=== PATIENT | male | born 1940 | race Caucasian/White ===

== ENCOUNTER → 2017-03-12 07:49 | Outpatient (CLI) | payer MEDICARE, BC ==
[~2017-03-12 07:49] MED LIST: CENTRUM COMPLE1 EACH PO; NORVASC5 MG PO; PROTONIX40 MG PO; VITAMIN C1000 MG PO; VITAMIN E400 UNI2 PO; ZIAC 5-6.25 MG1 TAB PO
[2017-03-12 08:55] LABS: ALBUMIN 3.8 g/dL (3.4-5.0); BILIRUBIN - DIRECT 0.56 mg/dL (0.00-0.30); BILIRUBIN - INDIRECT 0.78 mg/dL (0.00-1.00); BILIRUBIN - TOTAL 1.34 mg/dL (0.2-1.3); PROTEIN - SERUM 7.6 g/dL (6.4-8.2)
== END | disposition home or self-care (01) ==
LOC: D.US 07:49
PROVIDERS: Internal Medicine Gastroenterology
DX: K70.30 Alcoholic cirrhosis of liver without ascites (principal)

== ENCOUNTER → 2017-05-27 16:18 | Outpatient (CLI) | payer MEDICARE, BC | END | disposition home or self-care (01) | LOC: D.MRI 16:18 | DX: M48.56XA Collapsed vertebra, not elsewhere classified, lumbar region, initial encounter for fracture (principal) ==

== ENCOUNTER → 2017-12-10 14:22 | Outpatient (CLI) | payer MEDICARE, BC ==
[~2017-12-10 14:22] MED LIST changes: +ALDACTONE25 MG PO; +CHRONULAC30 ML PO; +CLEOCIN HCL300 MG PO; +FLOMAX0.4 MG PO; +TENORMIN50 MG PO
== END | disposition home or self-care (01) ==
LOC: D.MRI 14:22
DX: L02.519 Cutaneous abscess of unspecified hand (principal)

== ENCOUNTER 2017-12-11 15:25 | Inpatient (IN) | payer MEDICARE, BC ==
[~2017-12-11] VITALS: Ht 177.8 cm; Wt 109.1 kg
--- NOTE | ~2017-12-11 | HP ---
PATIENT: FABIO VARGAS MEDICAL RECORD: [id number] ACCOUNT: [id number] LOCATION:D.[facility] : 42 ADMISSION DATE: 12/11/17 HISTORY AND PHYSICAL EXAMINATION HISTORY OF PRESENT ILLNESS: A 77-year-old gentleman who fell apparently cutting his hand on either a piece of glass or hitting it against a wall. This happened about 2-1/2 weeks ago. He states it was very swollen and red, but he was doctoring at home. He finally came in to see us midweek, thumb was very erythematous. There were 2 areas that were open on both the top and bottom of the thumb that were draining some. There was no streaking up the arm. White count was normal. He was afebrile. We started him on clindamycin, obtained wound cultures which did grow out MRSA. We saw him back yesterday. The thumb was actually looking better. There were no signs of osteo on plain film x-ray; however, we set him up for an MRI. The MRI result showed what appeared to be a possible early infectious tenosynovitis with edema tracking along the thumb to the flexor compartment, also a possible superimposed fracture over the distal phalanx and still some abscess or fluid collection radial to the proximal thumb phalanx. In light of this, we decided to admit the patient for IV antibiotics and orthopedic consultation for a possible debridement in the operating room. PAST MEDICAL HISTORY: He has a past medical history that includes GERD with alcoholic liver disease. He is followed by Dr. Carballo from . He also has a history of hypertension, BPH. HOME MEDICATIONS: Include amlodipine 5 mg daily, Tenoretic 50/25 one tablet daily. He has been on clindamycin now for the last 3 days 300 mg q.6 hours, Enulose 6 teaspoonful by mouth once daily, pantoprazole 40 mg daily, potassium 10 mEq b.i.d., Aldactone 50 mg daily, Flomax 0.4 mg daily. ALLERGIES: PENICILLIN AND TETANUS. SOCIAL HISTORY: He does still drink alcohol, he is a former smoker who quit over 10 years ago. FAMILY HISTORY: Noncontributory. REVIEW OF SYSTEMS: CONSTITUTIONAL: No fever or chills. HEENT: No visual or auditory changes, sore throat, rhinorrhea, or dysphagia. CARDIOPULMONARY: No chest pain, palpitations, orthopnea. No cough. GASTROINTESTINAL: Does have GERD and occasional bloating, but no abdominal pain. EXTREMITIES: Little bit of peripheral edema. He does have pain and swelling in the right thumb. PHYSICAL EXAMINATION: HEENT: Unremarkable. NECK: Supple. No JVD or adenopathy. HEART: Regular rate and rhythm. No murmurs or rubs. LUNGS: Clear with no rhonchi or wheezing. ABDOMEN: Soft, nontender with nondistended with normoactive bowel sounds. No organomegaly. EXTREMITIES: Right thumb had erythema and swelling along the dorsal and ventral aspect of the thumb with an open sore on both ends of the thumb with some HISTORY AND PHYSICAL [id number] FABIO VARGAS purulent drainage. VITAL SIGNS: He was afebrile. Blood pressure 120/80. ASSESSMENT AND PLAN: Abscess cellulitis, right thumb with a tenosynovitis and possible osteomyelitis with open fracture. We are going to obtain orthopedic consult. We will hold off on CT scan until seen by ortho, but we will repeat plain film x-rays today. Ask ID to consult. Start vancomycin IV q.12 hours with pharmacy to dose. Continue his home medications for his cirrhosis and hypertension. His wound culture that was done from a couple of days ago again did show methicillin-resistant Staphylococcus aureus . It was sensitive to vancomycin, Bactrim, tetracycline, rifampin, and clindamycin. It was resistant to erythromycin and oxacillin. We will continue to follow clinically. EDITED ON WRONG ACCT# [id number] 12/15/17 TRANSINT:[id number] Voice Confirmation ID: [id number] DOCUMENT ID: [id number] PARDEEP HUNTER DO at 0716 CC: [id number] DICTATION DATE: 12/11/17 1227 IRON GUARDRAIL INSTALLER: 12/11/17 1310 DIS IN 12/14/17 [facility] [address] [place] [address]
--- NOTE | ~2017-12-11 | OP ---
PATIENT NAME: FABIO VARGAS MEDICAL RECORD: [id number] :44 LOCATION:D[id number] ADMISSION DATE:12/11/17 SURGEON: ANNA KUMAR MD DATE OF OPERATION: 12/11/2017 PREOPERATIVE DIAGNOSIS: Open fracture dislocation of the right thumb DIP. POSTOPERATIVE DIAGNOSIS: Open fracture dislocation of the right thumb DIP. PROCEDURE: Excisional debridement of flexor tendon sheath of the right thumb DIP with open reduction internal fixation of the fracture dislocation and a volar plate repair. SURGEON: Anna Kumar MD ANESTHESIA: General. INTRAOPERATIVE COMPLICATIONS: None. SUMMARY OF PATHOLOGIC FINDINGS: The patient had what was thought to be a closed thumb phalanx dislocation with contusions and abrasions that got infected. Clearly at the time of surgery, the patient had a scrape of the condyle of the thumb phalanx indicating this most likely was an open fracture dislocation, the tendon itself was in good condition and was not cut; however, the volar plate had completely avulsed requiring all of the above surgery, that is excisional debridement volar plate repair and open reduction internal fixation of the thumb distal interphalangeal joint or the thumb IP joint. OPERATIVE SUMMARY IN DETAIL: After obtaining the appropriate preoperative orthopedic surgery consent as well as anesthetic consultation, evaluation and clearance, the patient was brought to the operating room and placed on the operating table in supine position. After general laryngeal mask administered, tourniquet was placed about the proximal aspect of the right upper extremity. Right upper extremity was then prepped and draped in routine sterile fashion. The arm was elevated and exsanguinated, tourniquet inflated to 250 mmHg. The initial exploration did show the above findings. The incision itself was widened in a volar zigzag pattern to reveal the above pathology. After bulb syringe irrigation was carried out, the IP joint was reduced and pinned with an 0.062 K-wire under fluoroscopic control. Thus stabilizing the joint, allowing for further debridement of the entire flexor tendon sheath, the patient at this point had complete infectious obliteration of the A2 peyton or the peyton mechanism across the thumb phalanx. However, the volar plate was in good condition and was easily repaired across the base of the DIP joint. At this point, further irrigation was carried out and then the skin was very loosely reapproximated with 4-0 Prolene. All nonviable tissue had been excised with both scalpel and rongeur and this was deep to bone with some excision of bony fragments. Having completed the closure, Jergens ball was placed on the tip of the K-wire and sterile dressings were applied. Fluoroscopic images were sent to radiology for final radiologist review. The patient was awakened and taken to the recovery room in stable condition. All final needle and sponge counts were correct. TRANSINT:[id number] Voice Confirmation ID: [id number] DOCUMENT ID: [id number] OPERATIVE REPORT [id number] FABIO VARGAS MD, ANNA SORIANO at 1101 CC: [id number] DICTATION DATE: 12/12/17 1029 PUBLIC HEALTH DOCTOR: 12/12/17 1212 ADM IN [facility] [address] [place] [address]
[~2017-12-11 15:25] MED LIST changes: -ALDACTONE25 MG PO; -CHRONULAC30 ML PO; -CLEOCIN HCL300 MG PO; -FLOMAX0.4 MG PO; -TENORMIN50 MG PO
[2017-12-11 16:11] VITALS: BP 124/67; BMI 34.5
[2017-12-11 17:54] LABS: BASOPHILS 0.3 % (0-2); EOSINOPHILS 0.3 % (0-7); HEMOGLOBIN 11.1 g/dL (13.5-17.5); IMMATURE GRANULOCYTES 0.5 % (0-5); LYMPHOCYTES 17.3 % (15-50); MCH 35.7 pg (26.0-34.0); MCHC 35.8 g/dL (31.0-37.0); MCV 99.7 fL (80.0-100.0); MEAN PLATELET VOLUME 9.4 fL (7.4-10.4); MONOCYTES 12.9 % (2-11); NEUTROPHILS 68.7 % (40-80); RBC 3.11 10x6/uL (4.20-6.10); RDW 11.9 % (11.5-14.5)
[2017-12-11 17:55] LABS: PLATELET COUNT 168 10x3/uL (130-400)
[2017-12-11 18:05] LABS: ANION GAP 17.4 mmol/L (8-16); BILIRUBIN - TOTAL 1.73 mg/dL (0.2-1.3); CALCIUM 8.6 mg/dL (8.5-10.1); CREATININE - SERUM 1.7 mg/dL (0.6-1.3); POTASSIUM - SERUM 4.4 mmol/L (3.5-5.1); PROTEIN - SERUM 6.9 g/dL (6.4-8.2)
[2017-12-11 18:07] VITALS: Ht 177.8 cm; Wt 109.1 kg
[2017-12-11 18:57] LABS: ERYTHROCYTE SEDIMENTATION RATE 80 mm/hr (0-20)
[2017-12-11 20:02] VITALS: BP 119/50
[2017-12-12 04:17] VITALS: BP 112/63
[2017-12-12 07:46] LABS: BASOPHILS 0.6 % (0-2); EOSINOPHILS 1.2 % (0-7); HEMATOCRIT 28.6 % (42.0-54.0); HEMOGLOBIN 10.3 g/dL (13.5-17.5); MCH 35.5 pg (26.0-34.0); MCV 98.6 fL (80.0-100.0); MEAN PLATELET VOLUME 9.3 fL (7.4-10.4); MONOCYTES 14.4 % (2-11); NEUTROPHILS 59.8 % (40-80); PLATELET COUNT 153 10x3/uL (130-400); RDW 11.8 % (11.5-14.5); WBC 5.1 10x3/uL (4.8-10.8)
[2017-12-12 07:59] LABS: ALBUMIN 2.7 g/dL (3.4-5.0); ANION GAP 14.9 mmol/L (8-16); BILIRUBIN - DIRECT 0.79 mg/dL (0.00-0.30); BILIRUBIN - INDIRECT 0.66 mg/dL (0.00-1.00); BILIRUBIN - TOTAL 1.45 mg/dL (0.2-1.3); CALCIUM 8.5 mg/dL (8.5-10.1); CARBON DIOXIDE 22.8 mmol/L (21.0-32.0); CREATININE - SERUM 1.4 mg/dL (0.6-1.3); PROTEIN - SERUM 6.9 g/dL (6.4-8.2)
[2017-12-12 08:02] LABS: POTASSIUM - SERUM 3.7 mmol/L (3.5-5.1)
[2017-12-12 08:10] VITALS: BP 116/57
[2017-12-12 11:28] VITALS: BP 148/76
[2017-12-12 16:17] VITALS: BP 125/61
[2017-12-12 20:02] VITALS: BP 113/51
[2017-12-12 23:38] VITALS: BP 130/60
[2017-12-13 04:49] VITALS: BP 133/57
[2017-12-13 05:00] LABS: BASOPHILS 0.2 % (0-2); EOSINOPHILS 0.3 % (0-7); HEMATOCRIT 28.2 % (42.0-54.0); IMMATURE GRANULOCYTES 0.5 % (0-5); LYMPHOCYTES 17.5 % (15-50); MCH 35.6 pg (26.0-34.0); MCHC 35.5 g/dL (31.0-37.0); MCV 100.4 fL (80.0-100.0); MEAN PLATELET VOLUME 9.5 fL (7.4-10.4); MONOCYTES 13.3 % (2-11); NEUTROPHILS 68.2 % (40-80); PLATELET COUNT 163 10x3/uL (130-400); RBC 2.81 10x6/uL (4.20-6.10); RDW 11.9 % (11.5-14.5); WBC 5.9 10x3/uL (4.8-10.8)
[2017-12-13 05:24] LABS: ALBUMIN 2.7 g/dL (3.4-5.0); ANION GAP 13.9 mmol/L (8-16); BILIRUBIN - TOTAL 1.37 mg/dL (0.2-1.3); CALCIUM 8.3 mg/dL (8.5-10.1); CARBON DIOXIDE 23.8 mmol/L (21.0-32.0); CREATININE - SERUM 1.3 mg/dL (0.6-1.3); POTASSIUM - SERUM 3.7 mmol/L (3.5-5.1); PROTEIN - SERUM 6.9 g/dL (6.4-8.2)
[2017-12-13 08:24] VITALS: BP 131/69
[2017-12-13 12:06] VITALS: BP 130/65
[2017-12-13 16:10] VITALS: BP 101/63
[2017-12-13 22:12] VITALS: BP 116/58
[2017-12-14 02:11] VITALS: BP 105/44
[2017-12-14 04:16] LABS: BASOPHILS 0.4 % (0-2); EOSINOPHILS 1.6 % (0-7); HEMATOCRIT 28.8 % (42.0-54.0); HEMOGLOBIN 10.1 g/dL (13.5-17.5); IMMATURE GRANULOCYTES 0.6 % (0-5); LYMPHOCYTES 25.9 % (15-50); MCH 35.4 pg (26.0-34.0); MCHC 35.1 g/dL (31.0-37.0); MCV 101.1 fL (80.0-100.0); MEAN PLATELET VOLUME 9.4 fL (7.4-10.4); MONOCYTES 12.4 % (2-11); NEUTROPHILS 59.1 % (40-80); PLATELET COUNT 147 10x3/uL (130-400); RBC 2.85 10x6/uL (4.20-6.10); RDW 11.9 % (11.5-14.5)
[2017-12-14 04:31] LABS: ALBUMIN 2.6 g/dL (3.4-5.0); ANION GAP 13.2 mmol/L (8-16); BILIRUBIN - TOTAL 1.13 mg/dL (0.2-1.3); CALCIUM 8.2 mg/dL (8.5-10.1); CARBON DIOXIDE 23.4 mmol/L (21.0-32.0); CREATININE - SERUM 1.2 mg/dL (0.6-1.3); POTASSIUM - SERUM 3.6 mmol/L (3.5-5.1); PROTEIN - SERUM 6.8 g/dL (6.4-8.2)
[2017-12-14] MEDS ORDERED: FLOMAX0.4 MG PO (06:06)
[2017-12-14] MEDS ORDERED: CHRONULAC30 ML PO (06:07)
[2017-12-14] MEDS ORDERED: ALDACTONE25 MG PO (06:07)
[2017-12-14] MEDS ORDERED: TENORMIN50 MG PO (06:08)
[2017-12-14 10:36] VITALS: BP 126/59
[2017-12-14] MEDS ORDERED: CLEOCIN HCL300 MG PO ×3 (13:18→13:22)
== END 2017-12-14 14:04 | disposition home or self-care (01) | DRG 982 ==
LOC: D.MS 15:25
PROVIDERS: Family Medicine; Orthopaedic Surgery
PROC: 0PSR04Z Reposition Right Thumb Phalanx with Internal Fixation Device, Open Approach (ICD-10-PCS; principal; 2017-12-11)
PROC: 0PBR0ZZ Excision of Right Thumb Phalanx, Open Approach (ICD-10-PCS; 2017-12-11)
DX: L03.113 Cellulitis of right upper limb (principal); L02.511 Cutaneous abscess of right hand; S62.521B Displaced fracture of distal phalanx of right thumb, initial encounter for open fracture; E87.1 Hypo-osmolality and hyponatremia; M65.141 Other infective (teno)synovitis, right hand; K21.9 Gastro-esophageal reflux disease without esophagitis; I10 Essential (primary) hypertension; N40.0 Benign prostatic hyperplasia without lower urinary tract symptoms; K70.9 Alcoholic liver disease, unspecified; Z87.891 Personal history of nicotine dependence; W01.110A Fall on same level from slipping, tripping and stumbling with subsequent striking against sharp glass, initial encounter

== ENCOUNTER → 2018-02-15 08:45 | Outpatient (CLI) | payer MEDICARE, BC ==
[2017-12-11 18:07] VITALS: BMI 34.5
[~2018-02-15 08:45] MED LIST changes: +ALDACTONE25 MG PO; +CHRONULAC30 ML PO; +CLEOCIN HCL300 MG PO; +FLOMAX0.4 MG PO; +TENORMIN50 MG PO
[2018-02-15 10:20] LABS: ALBUMIN 3.6 g/dL (3.4-5.0); BILIRUBIN - DIRECT 0.32 mg/dL (0.00-0.30); BILIRUBIN - INDIRECT 0.68 mg/dL (0.00-1.00); PROTEIN - SERUM 7.4 g/dL (6.4-8.2)
== END | disposition home or self-care (01) ==
LOC: D.US 02-11 09:00 → D.LAB 02-11 10:00 → D.US 02-12 09:00 → D.LAB 02-12 09:30 → D.US 08:45
PROVIDERS: Internal Medicine Gastroenterology
DX: K74.5 Biliary cirrhosis, unspecified (principal); K70.9 Alcoholic liver disease, unspecified

== ENCOUNTER → 2018-04-16 15:24 | Outpatient (CLI) | payer MEDICARE, BC ==
[2017-12-11 18:07] VITALS: BMI 34.5
== END | disposition home or self-care (01) ==
LOC: D.CT 15:24
DX: L03.211 Cellulitis of face (principal)

== ENCOUNTER → 2019-08-29 13:08 | Outpatient (CLI) | payer MEDICARE, BC ==
[2017-12-11 18:07] VITALS: BMI 34.5
[~2019-08-29 13:08] MED LIST changes: +HYDROCODON-ACE1 EA10 PO
[2019-08-29 14:47] LABS: ANION GAP 18.3 mmol/L (8-16); CALCIUM 9.3 mg/dL (8.5-10.1); CARBON DIOXIDE 22.8 mmol/L (21.0-32.0); CREATININE - SERUM 1.5 mg/dL (0.6-1.3); POTASSIUM - SERUM 4.1 mmol/L (3.5-5.1)
[2019-08-29 14:49] LABS: HEMATOCRIT 39.4 % (42.0-54.0); HEMOGLOBIN 13.5 g/dL (13.5-17.5); MCH 34.1 pg (26.0-34.0); MCHC 34.3 g/dL (31.0-37.0); MCV 99.5 fL (80.0-100.0); MEAN PLATELET VOLUME 10.7 fL (7.4-10.4); RBC 3.96 10x6/uL (4.20-6.10); RDW 12.9 % (11.5-14.5)
== END | disposition home or self-care (01) ==
LOC: D.PAN 13:00
PROVIDERS: ATTEND Orthopaedic Surgery
DX: G56.00 Carpal tunnel syndrome, unspecified upper limb (principal); Z01.810 Encounter for preprocedural cardiovascular examination; Z01.811 Encounter for preprocedural respiratory examination; Z01.812 Encounter for preprocedural laboratory examination

== ENCOUNTER 2019-09-01 06:45 | Day surgery (SDC) | payer MEDICARE, BC ==
[~2019-09-01] VITALS: Ht 177.8 cm; Wt 108.9 kg
[~2019-09-01 06:45] MED LIST changes: -HYDROCODON-ACE1 EA10 PO
[2019-09-01 07:47] VITALS: BP 149/78; Ht 177.8 cm; Wt 108.9 kg
[2019-09-01] MEDS ORDERED: HYDROCODON-ACE1 EA10 PO (09:17)
--- NOTE | 2019-09-02 10:43 | OP ---
PATIENT NAME: FABIO VARGAS MEDICAL RECORD: [id number] :44 LOCATION:D.OPS ADMISSION DATE: SURGEON: ANNA KUMAR MD DATE OF OPERATION: 09/01/2019 PREOPERATIVE DIAGNOSIS: Carpal tunnel syndrome of the left wrist. POSTOPERATIVE DIAGNOSIS: Carpal tunnel syndrome of the left wrist. PROCEDURE: Left carpal tunnel release. SURGEON: Anna Kumar MD ANESTHESIA: General. INTRAOPERATIVE COMPLICATIONS: None. SUMMARY OF PATHOLOGIC FINDINGS: The patient had a very tight, extremely tight, transverse carpal ligament consistent with the preoperative diagnosis. OPERATIVE SUMMARY IN DETAIL: After obtaining the appropriate preoperative orthopedic surgery consent as well as anesthetic consultation, evaluation and clearance, the patient was brought to the operating room and placed on the operating table in a supine position. After general laryngeal mask airway was administered, tourniquet was placed on the proximal aspect of the left upper extremity. Left upper extremity was then prepped and draped in routine sterile fashion. The arm was elevated and exsanguinated, tourniquet inflated to 250 mmHg. After the appropriate timeout was taken and agreed upon by all, incision was made in the mid palmar region in line with the fourth metacarpal ray. This was taken down to the level of distal aspect, the transverse carpal ligament was identified. It was incised gently. [place] elevator was then placed in the carpal canal to protect the median nerve, while the transverse carpal ligament was incised in its entirety under direct visualization using both scalpel and the [employer] light knife. Having completed this, the wound was irrigated, locally infiltrated with 0.25% Marcaine plain. The palmar incision was closed by LILIANA Lane. Sterile dressings were applied. Tourniquet was deflated. The patient was awakened, taken to recovery room in stable condition. All final needle and sponge counts were correct. TRANSINT:[id number] Voice Confirmation ID: [id number] DOCUMENT ID: [id number] ANNA KUMAR MD at 1043 CC: [id number] DICTATION DATE: 09/01/19918 PLANT ATTENDANT OR ASSISTANT OPERATOR: 09/01/19 1136 [facility] 09/01/19 [place] [address]
== END 2019-09-01 11:15 | disposition home or self-care (01) ==
LOC: D.OPS 06:45 → D.PAN 09:15 → D.OPS 09:15
PROVIDERS: ATTEND Orthopaedic Surgery
DX: G56.02 Carpal tunnel syndrome, left upper limb (principal)